=== PATIENT | male | born 1950 | race Caucasian/White ===

== ENCOUNTER 2020-07-05 10:07 | Emergency (ER) | payer MEDICARE, OTHER ==
[~2020-07-05 10:07] MED LIST: ASPIRIN CHEWABL81 MG PO; BACTRIM DS TAB1 EACH PO; PERCOCET 5-3251 EACH PO; XARELTO10 MG PO
[2020-07-05 11:27] LABS: BASOPHIL 0.2 % (0-2); EOSINOPHIL 0 % (0-7); HCT 41.3 % (42.0-52.0); HGB 14.1 g/dl (13.2-18.0); LYMPHOCYTE 2.9 % (15-48); MCH 31.5 pg (25.0-31.0); MCHC 34.1 g/dL (32.0-36.0); MCV 92.4 fL (78.0-100.0); MONOCYTE 7.1 % (0-12); MPV 8.9 fL (6.0-9.5); NEUTROPHIL 89.3 % (41-80); NRBC 0; PLT 203 K/uL (150-400); RBC 4.47 M/uL (4.70-6.00); RDW 13.2 % (11.5-14.0); WBC 17.9 K/uL (4.0-10.5)
[2020-07-05 11:32] LABS: INR 1.31 (0.9-1.2); PROTHROMBIN TIME 15.5 SECONDS (11.4-13.6); PTT 31.5 SECONDS (22.2-34.7)
[2020-07-05 11:50] LABS: ALBUMIN 3.4 g/dL (3.4-5.0); BILIRUBIN - TOTAL 0.9 mg/dL (0.2-1.0); BUN/CREAT RATIO (CALC) 20.9 RATIO; C-REACTIVE PROTEIN 11.3 mg/dL (<=0.90); CREATININE 1.1 mg/dL (0.67-1.17); GLOBULIN (CALCULATION) 4.4 g/dL; MAGNESIUM 1.7 mg/dL (1.8-2.4); POTASSIUM 3.7 mmol/L (3.5-5.1); TOTAL PROTEIN 7.8 g/dL (6.4-8.2)
[2020-07-05 12:00] LABS: LACTIC ACID 1.3 mmol/L (0.4-1.9)
[2020-07-05 13:48] LABS: BILIRUBIN 1+ mg/dL (NEGATIVE); BLOOD 3+ Ery/uL (NEGATIVE); CLARITY HAZY (CLEAR); COLOR YELLOW (YELLOW); GLUCOSE (U) NORMAL (NORMAL); LEUKOCYTES NEGATIVE Leu/uL (NEGATIVE); NITRITE NEGATIVE (NEGATIVE); PROTEIN TRACE (LOW) mg/dL (NEGATIVE); SPECIFIC GRAVITY 1.025 (1.001-1.030); UROBILINOGEN 0.2 mg/dL (0.2-1.0); pH 5.5 (5.0-9.0)
[2020-07-05 13:52] LABS: BACTERIA TRACE; SQUAMOUS EPITHELIAL CELLS RARE; URINARY RBC TNTC; URINARY WBC RARE
== END 2020-07-05 22:00 | disposition other institution (70) ==
LOC: FER 10:07
PROVIDERS: Emergency Medicine
DX: M51.27 Other intervertebral disc displacement, lumbosacral region (principal); M51.37 Other intervertebral disc degeneration, lumbosacral region; M48.07 Spinal stenosis, lumbosacral region; R65.10 Systemic inflammatory response syndrome (SIRS) of non-infectious origin without acute organ dysfunction; F17.210 Nicotine dependence, cigarettes, uncomplicated; Z88.0 Allergy status to penicillin; Z20.822 Contact with and (suspected) exposure to COVID-19; K57.30 Diverticulosis of large intestine without perforation or abscess without bleeding; I71.4 Abdominal aortic aneurysm, without rupture; Z79.82 Long term (current) use of aspirin; Z79.891 Long term (current) use of opiate analgesic
CPT/HCPCS: 36415; 71250; 72148; 80053; 81001; 82728; 83605; 83615; 83735; 84145; 85025; 85610; 85730; 86140; 87040; 87088; J1170; J2405; J3370; J7030; J7050; U0002

== ENCOUNTER 2020-09-04 12:02 | Emergency (ER) | payer MEDICARE, OTHER ==
[2020-09-04 14:25] LABS: BASOPHIL 0.5 % (0-2); EOSINOPHIL 0 % (0-7); HCT 30.9 % (42.0-52.0); HGB 10.3 g/dl (13.2-18.0); LYMPHOCYTE 23.6 % (15-48); MCH 29.9 pg (25.0-31.0); MCHC 33.3 g/dL (32.0-36.0); MCV 89.8 fL (78.0-100.0); MONOCYTE 8.1 % (0-12); MPV 10.1 fL (6.0-9.5); NEUTROPHIL 67.3 % (41-80); NRBC 0; PLT 108 K/uL (150-400); RBC 3.44 M/uL (4.70-6.00); RDW 16.5 % (11.5-14.0); WBC 5.7 K/uL (4.0-10.5)
[2020-09-04 14:38] LABS: BILIRUBIN - TOTAL 3.5 mg/dL (0.2-1.0); BUN/CREAT RATIO (CALC) 28.2 RATIO; CREATININE 0.85 mg/dL (0.67-1.17); GLOBULIN (CALCULATION) 4.2 g/dL; POTASSIUM 3.3 mmol/L (3.5-5.1); TOTAL PROTEIN 6.2 g/dL (6.4-8.2)
[2020-09-04 14:50] LABS: LACTIC ACID 0.7 mmol/L (0.4-1.9)
[2020-09-04 14:58] LABS: AMYLASE 33 U/L (25-115); LIPASE 102 U/L (73-393)
[2020-09-04 14:58] LABS: INR 1.11 (0.9-1.2); PROTHROMBIN TIME 13.6 SECONDS (11.4-13.6)
[2020-09-04 16:06] LABS: BILIRUBIN 3+ mg/dL (NEGATIVE); BLOOD 3+ Ery/uL (NEGATIVE); CLARITY HAZY (CLEAR); GLUCOSE (U) NORMAL (NORMAL); LEUKOCYTES NEGATIVE Leu/uL (NEGATIVE); NITRITE NEGATIVE (NEGATIVE); PROTEIN 1+ mg/dL (NEGATIVE)
[2020-09-04 16:07] LABS: COLOR AMBER (YELLOW)
[2020-09-04 16:12] LABS: CALCIUM OXALATE CRYSTALS TRACE; URINARY RBC TNTC
[2020-09-04 16:14] LABS: BACTERIA TRACE
== END 2020-09-04 18:09 | disposition home or self-care (01) ==
LOC: FER 12:02
PROVIDERS: Nurse Practitioner Family
DX: R31.9 Hematuria, unspecified (principal); R74.01 Elevation of levels of liver transaminase levels; R53.81 Other malaise; R17 Unspecified jaundice; I10 Essential (primary) hypertension; F17.210 Nicotine dependence, cigarettes, uncomplicated; Z88.0 Allergy status to penicillin; Z87.39 Personal history of other diseases of the musculoskeletal system and connective tissue; C64.9 Malignant neoplasm of unspecified kidney, except renal pelvis; Z79.899 Other long term (current) drug therapy; Z20.822 Contact with and (suspected) exposure to COVID-19
CPT/HCPCS: 36415; 71046; 80053; 81001; 82140; 82150; 83605; 83690; 85025; 85610; 85730; 87040; 87088; 93005; J0696; J7030; U0002